=== PATIENT | male | born 1950 | race Caucasian/White ===

== ENCOUNTER 2018-01-12 07:40 | Inpatient (IN) | payer OTHER ==
[~2018-01-12] VITALS: Ht 185.4 cm; Wt 108.7 kg
[2018-01-12] MEDS ORDERED: SODIUM CHLORIDE FLUSH 10ML SYR IVF ONE (08:00)
[2018-01-12] MEDS ORDERED: NALOXONE 0.4 MG/ML, 1ML IVPush PRN (08:00)
[2018-01-12 08:44] LABS: BASOPHILS # (AUTO) 0.02 x10^3/uL (0-0.1); BASOPHILS % (AUTO) 0 % (0-1); EOSINOPHILS # (AUTO) 0.01 x10^3/uL (0-0.4); EOSINOPHILS % (AUTO) 0 % (1-7); LYMPHOCYTES # (AUTO) 1.92 x10^3/uL (1-3.4); LYMPHOCYTES % (AUTO) 30 % (22-44); MD NO; MEAN CORPUSCULAR HEMOGLOBIN 29.7 pg (27.5-34.5); MEAN CORPUSCULAR HGB CONC 33.8 g/dL (33.2-36.2); MEAN CORPUSCULAR VOLUME 87.8 fL (81-97); MEAN PLATELET VOLUME 7.4 fL (7.4-10.4); MONOCYTES # (AUTO) 0.56 x10^3/uL (0.2-0.8); MONOCYTES % (AUTO) 9 % (2-9); NEUTROPHILS % (AUTO) 61 % (42-75); PLATELET COUNT 154 x10^3/uL (130-400); RED BLOOD COUNT 5.76 x10^6/uL (4.38-5.82)
[2018-01-12] MEDS ORDERED: NALOXONE 1 MG/ML, 2ML ONE (08:44)
[2018-01-12 08:51] LABS: INTERNATIONAL NORMALIZED RATIO 1.04 (0.93-1.1); PROTHROMBIN TIME 10.7 Seconds (9.6-11.5)
[2018-01-12 08:56] LABS: ALANINE AMINOTRANSFERASE 56 U/L (12-78); ALBUMIN 3.9 g/dL (3.4-5.0); ANION GAP 7 mmol/L (5-15); CALCIUM 9.3 mg/dL (8.5-10.1); CHLORIDE 106 mmol/L (98-107); SALICYLATE LEVEL < 1.7 mg/dL (2.8-20.0)
[2018-01-12 08:58] LABS: ALKALINE PHOSPHATASE 101 U/L (45-117); BILIRUBIN,TOTAL 0.9 mg/dL (0.2-1.0); CREATININE 0.84 mg/dL (0.7-1.3); TOTAL PROTEIN 7.4 g/dL (6.4-8.2); TROPONIN I < 0.015 ng/mL (0.000-0.045)
[2018-01-12 09:02] LABS: ACETAMINOPHEN < 2 mcg/mL (10-30)
[2018-01-12 09:17] LABS: O2 FLOW 3.5 L/min
[2018-01-12 09:20] LABS: CREATINE KINASE, TOTAL 2920 U/L (39-308)
[2018-01-12] MEDS ORDERED: SODIUM CHLORIDE 0.9% 1,000ML IVBOLUS ONE (09:30)
[2018-01-12 09:38] LABS: MICROSCOPIC NOT IND
[2018-01-12 09:49] LABS: AMPHETAMINE SCREEN, URINE Negative (Negative); BARBITURATE SCREEN, URINE Negative (Negative); BENZODIAZEPINE SCREEN, URINE Positive (Negative); CANNABINOID SCREEN, URINE Negative (Negative); COCAINE SCREEN, URINE Negative (Negative); METHADONE SCREEN, URINE Negative (Negative); OPIATE SCREEN, URINE Negative (Negative)
[2018-01-12] MEDS ORDERED: [UNRECOGNIZED DRUG - REMARK] MC SCH (10:00)
[2018-01-12] MEDS ORDERED: LISI-170 PO (10:02)
[2018-01-12] MEDS ORDERED: POLYETHYLENE GLYCOL 17 GM PACKET PO PRN (11:00)
[2018-01-12] MEDS ORDERED: ONDANSETRON 2MG/ML, 2ML IVPush PRN (11:00)
[2018-01-12] MEDS ORDERED: LABETALOL 5MG/ML, 20ML IVPush PRN (11:00)
[2018-01-12] MEDS ORDERED: ONDANSETRON ODT 4 MG PO PRN (11:00)
[2018-01-12] MEDS: INSULIN LISPRO 100 UNITS/ML, PEN SQ-INSULIN SCH ×3 (11:00→20:17)
[2018-01-12] MEDS: SODIUM CHLORIDE 0.9% 1,000 ML IV SCH ×3 (12:14→20:08)
[2018-01-12] MEDS: AMPICILLIN/SULBACTAM 3 GM in SODIUM CHLORIDE 0.9% 100 ML IV SCH ×3 (12:50→22:53)
[2018-01-12] MEDS: ENOXAPARIN 40 MG/0.4 ML SQ SCH (13:14)
[2018-01-12] MEDS ORDERED: AMIODARONE 150 MG in DEXTROSE 5% 100 ML IV ONE (13:30)
[2018-01-12] MEDS ORDERED: FILTER 0.22 MICRON IV PRN (13:30)
[2018-01-12] MEDS: AMIODARONE 450 MG in DEXTROSE 5% 241 ML IV PRN ×2 (13:36→21:22)
[2018-01-12] MEDS: FLUMAZENIL 0.1 MG/1 ML, 5ML IVPush ONE (14:00)
[2018-01-12 14:44] VITALS: BP 111/78
[2018-01-12 14:53] LABS: ACETAMINOPHEN < 2 mcg/mL (10-30); SALICYLATE LEVEL < 1.7 mg/dL (2.8-20.0)
[2018-01-12] MEDS ORDERED: ACETAMINOPHEN 325 MG TABLET ONE (15:25)
[2018-01-12] MEDS ORDERED: ACETAMINOPHEN 650 MG SUPP PR PRN (15:30)
[2018-01-12] MEDS ORDERED: FLUMAZENIL 0.1 MG/1 ML, 5ML IVPush ONE (16:30)
[2018-01-13] MEDS: AMPICILLIN/SULBACTAM 3 GM in SODIUM CHLORIDE 0.9% 100 ML IV SCH ×4 (04:17→22:42)
[2018-01-13 04:35] LABS: BASOPHILS # (AUTO) 0.02 x10^3/uL (0-0.1); BASOPHILS % (AUTO) 0 % (0-1); EOSINOPHILS # (AUTO) 0.04 x10^3/uL (0-0.4); EOSINOPHILS % (AUTO) 1 % (1-7); LYMPHOCYTES # (AUTO) 2.03 x10^3/uL (1-3.4); LYMPHOCYTES % (AUTO) 38 % (22-44); MD NO; MEAN CORPUSCULAR HEMOGLOBIN 29.5 pg (27.5-34.5); MEAN CORPUSCULAR HGB CONC 33.4 g/dL (33.2-36.2); MEAN CORPUSCULAR VOLUME 88.3 fL (81-97); MEAN PLATELET VOLUME 7.6 fL (7.4-10.4); MONOCYTES # (AUTO) 0.51 x10^3/uL (0.2-0.8); MONOCYTES % (AUTO) 10 % (2-9); NEUTROPHILS % (AUTO) 51 % (42-75); PLATELET COUNT 132 x10^3/uL (130-400); RED BLOOD COUNT 4.77 x10^6/uL (4.38-5.82); RED CELL DISTRIBUTION WIDTH 14.5 % (9.4-14.8)
[2018-01-13 04:43] LABS: ALANINE AMINOTRANSFERASE 46 U/L (12-78); ALBUMIN 3.1 g/dL (3.4-5.0); ANION GAP 7 mmol/L (5-15); CALCIUM 8.4 mg/dL (8.5-10.1); CHLORIDE 107 mmol/L (98-107)
[2018-01-13 04:51] VITALS: BP 127/85
[2018-01-13 04:57] LABS: ALKALINE PHOSPHATASE 76 U/L (45-117); BILIRUBIN,TOTAL 1.1 mg/dL (0.2-1.0); CREATINE KINASE, TOTAL 2172 U/L (39-308); TOTAL PROTEIN 5.8 g/dL (6.4-8.2)
[2018-01-13] MEDS: SODIUM CHLORIDE 0.9% 1,000 ML IV SCH ×3 (05:07→19:54)
[2018-01-13] MEDS: INSULIN LISPRO 100 UNITS/ML, PEN SQ-INSULIN SCH ×4 (07:00→19:59)
[2018-01-13] MEDS: SENNA/DOCUSATE TABLET PO SCH (09:00)
[2018-01-13] MEDS: TAMSULOSIN 0.4 MG CAP.ER.24H PO SCH (09:00)
[2018-01-13] MEDS: PANTOPRAZOLE 40 MG IV IVPush SCH (09:05)
[2018-01-13] MEDS: AMIODARONE 450 MG in DEXTROSE 5% 241 ML IV PRN (11:00)
[2018-01-13] MEDS: ENOXAPARIN 40 MG/0.4 ML SQ SCH (11:03)
[2018-01-13] MEDS: ACETAMINOPHEN 325 MG TABLET PO PRN ×2 (16:55→23:10)
[2018-01-14] MEDS: SODIUM CHLORIDE 0.9% 1,000 ML IV SCH ×3 (02:21→16:45)
[2018-01-14 04:00] VITALS: BP 129/65
[2018-01-14] MEDS: AMPICILLIN/SULBACTAM 3 GM in SODIUM CHLORIDE 0.9% 100 ML IV SCH ×4 (05:02→22:36)
[2018-01-14] MEDS: INSULIN LISPRO 100 UNITS/ML, PEN SQ-INSULIN SCH ×2 (07:00→11:00)
[2018-01-14] MEDS: TAMSULOSIN 0.4 MG CAP.ER.24H PO SCH (08:52)
[2018-01-14] MEDS: PANTOPRAZOLE 40 MG IV IVPush SCH (08:52)
[2018-01-14] MEDS: SENNA/DOCUSATE TABLET PO SCH (08:54)
[2018-01-14] MEDS: ENOXAPARIN 40 MG/0.4 ML SQ SCH (11:07)
[2018-01-14 12:55] LABS: ALBUMIN 2.9 g/dL (3.4-5.0); ANION GAP 10 mmol/L (5-15); CALCIUM 8.3 mg/dL (8.5-10.1); CHLORIDE 105 mmol/L (98-107)
[2018-01-14 13:08] LABS: ALANINE AMINOTRANSFERASE 38 U/L (12-78); ALKALINE PHOSPHATASE 105 U/L (45-117); BILIRUBIN,TOTAL 1.5 mg/dL (0.2-1.0); CREATINE KINASE, TOTAL 1030 U/L (39-308); CREATININE 0.71 mg/dL (0.7-1.3)
[2018-01-14] MEDS: ACETAMINOPHEN 325 MG TABLET PO PRN ×2 (13:41→20:25)
[2018-01-14] MEDS: AMIODARONE 450 MG in DEXTROSE 5% 241 ML IV PRN (19:27)
[2018-01-14 19:56] VITALS: BP 120/62
[2018-01-15] MEDS: SODIUM CHLORIDE 0.9% 1,000 ML IV SCH ×3 (01:58→10:43)
[2018-01-15 04:07] VITALS: BP 100/61
[2018-01-15] MEDS: AMPICILLIN/SULBACTAM 3 GM in SODIUM CHLORIDE 0.9% 100 ML IV SCH ×4 (05:25→22:35)
[2018-01-15 05:29] LABS: BASOPHILS # (AUTO) 0.01 x10^3/uL (0-0.1); BASOPHILS % (AUTO) 0 % (0-1); EOSINOPHILS # (AUTO) 0.05 x10^3/uL (0-0.4); EOSINOPHILS % (AUTO) 1 % (1-7); LYMPHOCYTES # (AUTO) 1.48 x10^3/uL (1-3.4); LYMPHOCYTES % (AUTO) 35 % (22-44); MD NO; MEAN CORPUSCULAR HEMOGLOBIN 30.3 pg (27.5-34.5); MEAN CORPUSCULAR HGB CONC 34.1 g/dL (33.2-36.2); MEAN CORPUSCULAR VOLUME 88.9 fL (81-97); MEAN PLATELET VOLUME 7.3 fL (7.4-10.4); MONOCYTES # (AUTO) 0.49 x10^3/uL (0.2-0.8); MONOCYTES % (AUTO) 11 % (2-9); NEUTROPHILS # (AUTO) 2.22 x10^3/uL (1.8-6.8); NEUTROPHILS % (AUTO) 52 % (42-75); PLATELET COUNT 119 x10^3/uL (130-400); RED BLOOD COUNT 4.05 x10^6/uL (4.38-5.82)
[2018-01-15 05:43] LABS: CHLORIDE 109 mmol/L (98-107)
[2018-01-15 06:39] LABS: ALANINE AMINOTRANSFERASE 40 U/L (12-78); ALBUMIN 2.6 g/dL (3.4-5.0); ALKALINE PHOSPHATASE 155 U/L (45-117); ANION GAP 8 mmol/L (5-15); BILIRUBIN,TOTAL 1.6 mg/dL (0.2-1.0); CALCIUM 8.3 mg/dL (8.5-10.1); CREATINE KINASE, TOTAL 889 U/L (39-308); CREATININE 0.82 mg/dL (0.7-1.3); TOTAL PROTEIN 5.6 g/dL (6.4-8.2)
[2018-01-15 08:37] VITALS: BP 115/75
[2018-01-15] MEDS: TAMSULOSIN 0.4 MG CAP.ER.24H PO SCH (08:44)
[2018-01-15] MEDS: PANTOPROZOLE 40MG TABLET PO SCH (08:44)
[2018-01-15] MEDS: SENNA/DOCUSATE TABLET PO SCH (08:44)
[2018-01-15] MEDS: AMIODARONE 200 MG TABLET PO SCH ×2 (10:42→21:56)
[2018-01-15] MEDS: ENOXAPARIN 40 MG/0.4 ML SQ SCH (12:07)
[2018-01-15 13:55] VITALS: BP 112/57
[2018-01-15] MEDS: ACETAMINOPHEN 325 MG TABLET PO PRN ×2 (13:59→19:16)
[2018-01-15] MEDS: LORazepam 1MG TABLET PO PRN ×2 (15:34→21:56)
[2018-01-15] MEDS ORDERED: ARIP5TAB13 PO (17:28)
[2018-01-15] MEDS ORDERED: AMLO10TA2 PO (17:28)
[2018-01-15] MEDS ORDERED: INDO25CA PO (17:28)
[2018-01-15] MEDS ORDERED: DIAZ5TAB PO (17:28)
[2018-01-15] MEDS ORDERED: ESCI5TAB7 PO (17:28)
[2018-01-15] MEDS ORDERED: LISI40TA PO (17:28)
[2018-01-15 18:48] VITALS: BP 115/63
[2018-01-16] MEDS: SODIUM CHLORIDE 0.9% 1,000 ML IV SCH ×3 (01:12→23:55)
[2018-01-16 01:14] VITALS: BP 114/74
[2018-01-16] MEDS: AMPICILLIN/SULBACTAM 3 GM in SODIUM CHLORIDE 0.9% 100 ML IV SCH ×3 (05:29→17:19)
[2018-01-16 05:53] LABS: BASOPHILS # (AUTO) 0.01 x10^3/uL (0-0.1); BASOPHILS % (AUTO) 0 % (0-1); EOSINOPHILS # (AUTO) 0.05 x10^3/uL (0-0.4); EOSINOPHILS % (AUTO) 1 % (1-7); LYMPHOCYTES # (AUTO) 1.72 x10^3/uL (1-3.4); LYMPHOCYTES % (AUTO) 39 % (22-44); MD NO; MEAN CORPUSCULAR HEMOGLOBIN 30.1 pg (27.5-34.5); MEAN CORPUSCULAR HGB CONC 34.1 g/dL (33.2-36.2); MEAN CORPUSCULAR VOLUME 88.3 fL (81-97); MEAN PLATELET VOLUME 7.4 fL (7.4-10.4); MONOCYTES # (AUTO) 0.46 x10^3/uL (0.2-0.8); MONOCYTES % (AUTO) 11 % (2-9); NEUTROPHILS # (AUTO) 2.16 x10^3/uL (1.8-6.8); NEUTROPHILS % (AUTO) 49 % (42-75); PLATELET COUNT 115 x10^3/uL (130-400); RED BLOOD COUNT 3.72 x10^6/uL (4.38-5.82); RED CELL DISTRIBUTION WIDTH 14.1 % (9.4-14.8)
[2018-01-16 06:05] LABS: CHLORIDE 106 mmol/L (98-107)
[2018-01-16 06:12] LABS: ALANINE AMINOTRANSFERASE 42 U/L (12-78); ALBUMIN 2.6 g/dL (3.4-5.0); ALKALINE PHOSPHATASE 171 U/L (45-117); ANION GAP 7 mmol/L (5-15); BILIRUBIN,TOTAL 1.7 mg/dL (0.2-1.0); CALCIUM 7.8 mg/dL (8.5-10.1); CREATINE KINASE, TOTAL 499 U/L (39-308); CREATININE 0.74 mg/dL (0.7-1.3); TOTAL PROTEIN 5.3 g/dL (6.4-8.2)
[2018-01-16 06:35] VITALS: BP 119/65
[2018-01-16] MEDS: PANTOPROZOLE 40MG TABLET PO SCH (09:51)
[2018-01-16] MEDS: TAMSULOSIN 0.4 MG CAP.ER.24H PO SCH (09:52)
[2018-01-16] MEDS: SENNA/DOCUSATE TABLET PO SCH (09:52)
[2018-01-16] MEDS: AMIODARONE 200 MG TABLET PO SCH ×2 (09:59→20:47)
[2018-01-16] MEDS: ENOXAPARIN 40 MG/0.4 ML SQ SCH (11:41)
[2018-01-16 12:35] VITALS: BP 145/74
[2018-01-16] MEDS ORDERED: INDO50CA PO (15:29)
[2018-01-16] MEDS: INDOMETHACIN 50 MG CAPSULE PO PRN (17:19)
[2018-01-16] MEDS: SERTRALINE 50MG TABLET PO SCH (17:19)
[2018-01-16] MEDS ORDERED: POTASSIUM CHLORIDE 20 MEQ TAB.ER.PRT PO ONE (19:00)
[2018-01-16] MEDS ORDERED: INDOMETHACIN 50 MG CAPSULE PO ONE (19:00)
[2018-01-16 19:01] VITALS: BP 138/73
[2018-01-16] MEDS: AMOXICILLIN/CLAV 875-125MG TABLET PO SCH (20:46)
[2018-01-17 00:29] VITALS: BP 129/85
[2018-01-17] MEDS: LORazepam 1MG TABLET PO PRN ×3 (00:31→21:27)
[2018-01-17 06:00] LABS: BASOPHILS # (AUTO) 0.02 x10^3/uL (0-0.1); BASOPHILS % (AUTO) 0 % (0-1); EOSINOPHILS # (AUTO) 0.08 x10^3/uL (0-0.4); EOSINOPHILS % (AUTO) 2 % (1-7); LYMPHOCYTES # (AUTO) 1.36 x10^3/uL (1-3.4); LYMPHOCYTES % (AUTO) 32 % (22-44); MD NO; MEAN CORPUSCULAR HEMOGLOBIN 30.1 pg (27.5-34.5); MEAN CORPUSCULAR VOLUME 88.5 fL (81-97); MEAN PLATELET VOLUME 7.4 fL (7.4-10.4); MONOCYTES # (AUTO) 0.43 x10^3/uL (0.2-0.8); MONOCYTES % (AUTO) 10 % (2-9); NEUTROPHILS # (AUTO) 2.43 x10^3/uL (1.8-6.8); NEUTROPHILS % (AUTO) 56 % (42-75); PLATELET COUNT 134 x10^3/uL (130-400); RED BLOOD COUNT 3.89 x10^6/uL (4.38-5.82); RED CELL DISTRIBUTION WIDTH 14.1 % (9.4-14.8)
[2018-01-17 06:06] LABS: CHLORIDE 108 mmol/L (98-107)
[2018-01-17] MEDS: AMOXICILLIN/CLAV 875-125MG TABLET PO SCH ×2 (06:13→18:17)
[2018-01-17] MEDS: INDOMETHACIN 50 MG CAPSULE PO PRN ×3 (06:14→21:24)
[2018-01-17 06:30] VITALS: BP 155/66
[2018-01-17 06:54] LABS: ALANINE AMINOTRANSFERASE 41 U/L (12-78); ALBUMIN 2.7 g/dL (3.4-5.0); ALKALINE PHOSPHATASE 205 U/L (45-117); ANION GAP 7 mmol/L (5-15); BILIRUBIN,TOTAL 1.6 mg/dL (0.2-1.0); CALCIUM 8.2 mg/dL (8.5-10.1); CREATINE KINASE, TOTAL 285 U/L (39-308); CREATININE 0.86 mg/dL (0.7-1.3); TOTAL PROTEIN 5.7 g/dL (6.4-8.2)
[2018-01-17] MEDS: SERTRALINE 50MG TABLET PO SCH (08:53)
[2018-01-17] MEDS: TAMSULOSIN 0.4 MG CAP.ER.24H PO SCH (08:53)
[2018-01-17] MEDS: PANTOPROZOLE 40MG TABLET PO SCH (08:53)
[2018-01-17] MEDS: AMIODARONE 200 MG TABLET PO SCH ×2 (08:53→21:23)
[2018-01-17] MEDS: SENNA/DOCUSATE TABLET PO SCH (08:58)
[2018-01-17] MEDS ORDERED: SERTRALINE 50MG TABLET PO SCH (09:00)
[2018-01-17] MEDS: ENOXAPARIN 40 MG/0.4 ML SQ SCH (11:29)
[2018-01-17 12:00] VITALS: BP 136/82
[2018-01-17 20:30] VITALS: BP 138/61
[2018-01-18 01:41] VITALS: BP 139/84
[2018-01-18] MEDS: LORazepam 1MG TABLET PO PRN ×2 (04:00→13:41)
[2018-01-18 05:12] LABS: ALBUMIN 2.7 g/dL (3.4-5.0); ANION GAP 7 mmol/L (5-15); CHLORIDE 107 mmol/L (98-107)
[2018-01-18 05:14] LABS: ALANINE AMINOTRANSFERASE 44 U/L (12-78); ALKALINE PHOSPHATASE 268 U/L (45-117); BILIRUBIN,TOTAL 1.9 mg/dL (0.2-1.0); CREATININE 0.66 mg/dL (0.7-1.3); TOTAL PROTEIN 5.9 g/dL (6.4-8.2)
[2018-01-18] MEDS: AMOXICILLIN/CLAV 875-125MG TABLET PO SCH ×2 (05:45→16:56)
[2018-01-18] MEDS: INDOMETHACIN 50 MG CAPSULE PO PRN ×2 (05:45→16:57)
[2018-01-18] MEDS: SENNA/DOCUSATE TABLET PO SCH (07:39)
[2018-01-18] MEDS ORDERED: TEMAZEPAM 15 MG CAPSULE PO PRN (08:30)
[2018-01-18 09:18] VITALS: BP 159/92
[2018-01-18] MEDS: TAMSULOSIN 0.4 MG CAP.ER.24H PO SCH (09:35)
[2018-01-18] MEDS: PANTOPROZOLE 40MG TABLET PO SCH (09:35)
[2018-01-18] MEDS: SERTRALINE 50MG TABLET PO SCH (09:35)
[2018-01-18] MEDS: ENOXAPARIN 40 MG/0.4 ML SQ SCH (12:25)
[2018-01-18 14:34] VITALS: BP 144/80
[2018-01-18 18:48] VITALS: BP 160/77
[2018-01-18] MEDS: GABAPENTIN 300 MG CAPSULE PO SCH (20:44)
[2018-01-19 01:20] VITALS: BP 155/89
[2018-01-19] MEDS: AMOXICILLIN/CLAV 875-125MG TABLET PO SCH (06:19)
[2018-01-19 06:55] VITALS: BP 168/91
[2018-01-19] MEDS: ENOXAPARIN 40 MG/0.4 ML SQ SCH (08:04)
[2018-01-19] MEDS: SENNA/DOCUSATE TABLET PO SCH (08:05)
[2018-01-19] MEDS: TAMSULOSIN 0.4 MG CAP.ER.24H PO SCH (08:05)
[2018-01-19] MEDS: PANTOPROZOLE 40MG TABLET PO SCH (08:05)
[2018-01-19] MEDS: SERTRALINE 50MG TABLET PO SCH (08:06)
[2018-01-19] MEDS: GABAPENTIN 300 MG CAPSULE PO SCH ×2 (08:06→20:51)
[2018-01-19] MEDS: INDOMETHACIN 50 MG CAPSULE PO PRN ×2 (08:16→19:12)
[2018-01-19 12:00] VITALS: BP 162/83
[2018-01-19] MEDS ORDERED: METOPROLOL SUCCINATE 25 MG TAB.ER.24H ONE (12:25)
[2018-01-19] MEDS: METOPROLOL TARTRATE 25 MG TABLET PO SCH ×2 (12:29→19:03)
[2018-01-19 15:18] VITALS: BP 133/88
[2018-01-19] MEDS ORDERED: INDOMETHACIN 25 MG CAPSULE ONE (19:07)
[2018-01-19 19:16] VITALS: BP 140/87
[2018-01-20 07:52] VITALS: BP 175/110
[2018-01-20] MEDS: GABAPENTIN 300 MG CAPSULE PO SCH ×2 (08:52→21:03)
[2018-01-20] MEDS: SERTRALINE 50MG TABLET PO SCH (08:52)
[2018-01-20] MEDS: PANTOPROZOLE 40MG TABLET PO SCH (08:52)
[2018-01-20] MEDS: METOPROLOL TARTRATE 25 MG TABLET PO SCH ×2 (08:52→17:04)
[2018-01-20] MEDS: SENNA/DOCUSATE TABLET PO SCH (09:00)
[2018-01-20] MEDS: ENOXAPARIN 40 MG/0.4 ML SQ SCH (11:57)
[2018-01-20] MEDS: ACETAMINOPHEN 325 MG TABLET PO PRN (17:04)
[2018-01-20 17:24] VITALS: BP 107/69
[2018-01-20 19:29] VITALS: BP 137/87
[2018-01-20] MEDS ORDERED: TAMSULOSIN 0.4 MG CAP.ER.24H PO SCH (21:00)
[2018-01-21] MEDS: ACETAMINOPHEN 325 MG TABLET PO PRN (05:00)
[2018-01-21] MEDS: METOPROLOL TARTRATE 25 MG TABLET PO SCH (05:23)
[2018-01-21 07:32] VITALS: BP 152/93
[2018-01-21] MEDS: GABAPENTIN 300 MG CAPSULE PO SCH (07:44)
[2018-01-21] MEDS: SERTRALINE 50MG TABLET PO SCH (07:44)
[2018-01-21] MEDS: PANTOPROZOLE 40MG TABLET PO SCH (07:44)
[2018-01-21] MEDS: SENNA/DOCUSATE TABLET PO SCH (07:44)
[2018-01-21] MEDS: ENOXAPARIN 40 MG/0.4 ML SQ SCH (11:36)
== END 2018-01-21 16:07 | DRG 917 ==
LOC: ED 08:19 → EDIP 11:00 → CCU 11:58 → 5SO 01-14 15:44 → 3NE 01-18 18:41 → 3E 01-19 15:12
PROVIDERS: ADMIT Internal Medicine; ATTEND Hospitalist
DX: T42.4X2A Poisoning by benzodiazepines, intentional self-harm, initial encounter (principal); G92 Toxic encephalopathy; J96.00 Acute respiratory failure, unspecified whether with hypoxia or hypercapnia; J69.0 Pneumonitis due to inhalation of food and vomit; M62.82 Rhabdomyolysis; J98.11 Atelectasis; E11.9 Type 2 diabetes mellitus without complications; F32.9 Major depressive disorder, single episode, unspecified; I48.91 Unspecified atrial fibrillation; F10.21 Alcohol dependence, in remission; F41.9 Anxiety disorder, unspecified; I10 Essential (primary) hypertension; I27.20 Pulmonary hypertension, unspecified; I34.0 Nonrheumatic mitral (valve) insufficiency; N40.0 Benign prostatic hyperplasia without lower urinary tract symptoms; K82.8 Other specified diseases of gallbladder; M10.9 Gout, unspecified; Z81.8 Family history of other mental and behavioral disorders; Z85.038 Personal history of other malignant neoplasm of large intestine; Z91.5 Personal history of self-harm
CPT/HCPCS: 36415; 36600; 70450; 71045; 76700; 80053; 80307; 80329; 81003; 82140; 82550; 82803; 82962; 83605; 83735; 83880; 84100; 84443; 84484; 85025; 85610; 87040; 87081; 93005; 93306; 93970; J0295; J1650; J2310; J7060; Q0162; C9113; G0480; J0282; J7030

== ENCOUNTER 2018-01-27 15:01 | Emergency (ER) | payer OTHER ==
[~2018-01-27] VITALS: Ht 185.4 cm; Wt 105.0 kg
[~2018-01-27 15:01] MED LIST: AMLO10TA2 PO; ARIP5TAB13 PO; DIAZ5TAB PO; ESCI5TAB7 PO; INDO25CA PO; INDO50CA PO; LISI-170 PO; LISI40TA PO
[2018-01-27] MEDS ORDERED: SERT25TA PO (15:14)
[2018-01-27] MEDS ORDERED: METO25TA91 PO (15:14)
[2018-01-27] MEDS ORDERED: GABA-827 PO (15:14)
[2018-01-27 15:50] LABS: BASOPHILS # (AUTO) 0.04 x10^3/uL (0-0.1); BASOPHILS % (AUTO) 0 % (0-1); EOSINOPHILS # (AUTO) 0.02 x10^3/uL (0-0.4); EOSINOPHILS % (AUTO) 0 % (1-7); LYMPHOCYTES % (AUTO) 25 % (22-44); MD NO; MEAN CORPUSCULAR HEMOGLOBIN 29.9 pg (27.5-34.5); MEAN CORPUSCULAR HGB CONC 33.6 g/dL (33.2-36.2); MEAN CORPUSCULAR VOLUME 89.1 fL (81-97); MEAN PLATELET VOLUME 7.2 fL (7.4-10.4); MONOCYTES # (AUTO) 0.95 x10^3/uL (0.2-0.8); MONOCYTES % (AUTO) 10 % (2-9); NEUTROPHILS # (AUTO) 6.18 x10^3/uL (1.8-6.8); NEUTROPHILS % (AUTO) 65 % (42-75); PLATELET COUNT 323 x10^3/uL (130-400); RED BLOOD COUNT 4.75 x10^6/uL (4.38-5.82); RED CELL DISTRIBUTION WIDTH 15.4 % (9.4-14.8)
[2018-01-27 15:57] LABS: ALBUMIN 3.5 g/dL (3.4-5.0); ANION GAP 7 mmol/L (5-15); CALCIUM 9.1 mg/dL (8.5-10.1); CHLORIDE 107 mmol/L (98-107)
[2018-01-27 16:02] LABS: TROPONIN I < 0.015 ng/mL (0.000-0.045)
[2018-01-27] MEDS ORDERED: ENOXAPARIN 100 MG/ML SQ ONE (18:22)
[2018-01-27] MEDS ORDERED: INDOMETHACIN 50 MG CAPSULE ONE (18:30)
[2018-01-27] MEDS ORDERED: INDOMETHACIN 50 MG CAPSULE PO ONE (18:30)
[2018-01-27 19:55] VITALS: BP 139/100
== END 2018-01-27 22:50 ==
LOC: ED 22:44
DX: I48.91 Unspecified atrial fibrillation (principal); M1A.9XX0 Chronic gout, unspecified, without tophus (tophi); E11.9 Type 2 diabetes mellitus without complications; I10 Essential (primary) hypertension
CPT/HCPCS: 36415; 71045; 80048; 82040; 83880; 84484; 85025; 93005; 99285

== ENCOUNTER 2018-08-30 08:05 | Emergency (ER) | payer MEDICARE, OTHER ==
[~2018-08-30] VITALS: Ht 182.9 cm; Wt 124.0 kg
[~2018-08-30 08:05] MED LIST changes: -AMLO10TA2 PO; +AMLO10TA8 PO; +GABA-827 PO; -INDO25CA PO; +INDO25CA5 PO; -INDO50CA PO; +INDO50CA5 PO; +METO25TA91 PO; +SERT25TA PO
--- NOTE | 2018-08-30 08:37 | NUR ---
Willian JA at bedside for assesement, patient accompanied by daughter, he is safe in [facility], call light placed in reach, pwd, endorses hx of colon cancer and surgery x1.
[2018-08-30 10:11] LABS: BASOPHILS # (AUTO) 0.02 x10^3/uL (0-0.1); BASOPHILS % (AUTO) 0 % (0-1); EOSINOPHILS # (AUTO) 0.01 x10^3/uL (0-0.4); EOSINOPHILS % (AUTO) 0 % (1-7); LYMPHOCYTES # (AUTO) 2.03 x10^3/uL (1-3.4); LYMPHOCYTES % (AUTO) 33 % (22-44); MD NO; MEAN CORPUSCULAR HEMOGLOBIN 31.1 pg (27.5-34.5); MEAN CORPUSCULAR HGB CONC 34.9 g/dL (33.2-36.2); MEAN CORPUSCULAR VOLUME 89.1 fL (81-97); MEAN PLATELET VOLUME 7.6 fL (7.4-10.4); MONOCYTES # (AUTO) 0.37 x10^3/uL (0.2-0.8); MONOCYTES % (AUTO) 6 % (2-9); NEUTROPHILS # (AUTO) 3.74 x10^3/uL (1.8-6.8); NEUTROPHILS % (AUTO) 61 % (42-75); PLATELET COUNT 177 x10^3/uL (130-400); RED BLOOD COUNT 4.95 x10^6/uL (4.38-5.82); RED CELL DISTRIBUTION WIDTH 14.3 % (9.4-14.8)
[2018-08-30 10:22] LABS: ALANINE AMINOTRANSFERASE 44 U/L (12-78); ALBUMIN 4.2 g/dL (3.4-5.0); ANION GAP 7 mmol/L (5-15); CALCIUM 9.2 mg/dL (8.5-10.1); CHLORIDE 106 mmol/L (98-107)
[2018-08-30 10:25] LABS: ALKALINE PHOSPHATASE 101 U/L (45-117); BILIRUBIN,TOTAL 0.6 mg/dL (0.2-1.0); CREATININE 0.84 mg/dL (0.7-1.3); TOTAL PROTEIN 7.6 g/dL (6.4-8.2)
[2018-08-30] MEDS ORDERED: SODIUM CHLORIDE FLUSH 10ML SYR IVF ONE (11:00)
[2018-08-30] MEDS ORDERED: MAALOX/HYOSCYAMINE/LIDOCAINE 45 ML BTL PO ONE (11:00)
[2018-08-30 11:55] LABS: CULTURE INDICATED? NO; MICROSCOPIC NOT IND
[2018-08-30] MEDS ORDERED: MAALOX/HYOSCYAMINE/LIDOCAINE 45 ML BTL ONE (12:12)
[2018-08-30] MEDS ORDERED: OMNIPAQUE 350 MG/ML, 100ML BOTTLE ONE (12:15)
--- NOTE | 2018-08-30 12:18 | NUR ---
lab has called with lithium level 0.1, MADAI and updated face to face by this RN. Patient medicated with GI Cocktail, urine sent to lab earlier, and he is back from CT scan now. VSS on room air, call light in reach, no additional needs at this time.
[2018-08-30 12:19] VITALS: BP 157/86
== END 2018-08-30 13:16 | disposition home or self-care (01) ==
LOC: ED 08:29
DX: K21.9 Gastro-esophageal reflux disease without esophagitis (principal); I10 Essential (primary) hypertension; I48.91 Unspecified atrial fibrillation; F32.9 Major depressive disorder, single episode, unspecified; E11.9 Type 2 diabetes mellitus without complications; M10.9 Gout, unspecified
CPT/HCPCS: 36415; 74022; 74177; 76700; 80053; 80178; 81003; 83690; 85025; 99284; Q9967